=== PATIENT | male | born 1950 | race Caucasian/White ===

== ENCOUNTER 2019-04-04 18:36 | Inpatient (IN) | payer MEDICARE, OTHER ==
[2019-04-04 21:59] VITALS: BP 142/86
[2019-04-04] MEDS ORDERED: Magnesium Hydroxide (MOM) 30 mL UDC PO PRN (22:44)
[2019-04-04] MEDS ORDERED: Maalox 30 mL Cup PO PRN (22:44)
[2019-04-05] MEDS: Multivitamin Tab PO SCH (08:41)
[2019-04-05] MEDS ORDERED: Multivitamin w/ Minerals Tab PO SCH (09:00)
[2019-04-05] MEDS ORDERED: Non-Formulary Item 1 EA (Multivitamin [Multi-Vitamin Daily] 1 TAB) PO SCH (09:00)
[2019-04-05] MEDS ORDERED: Fleet Enema 135 mL RC ONE (10:00)
[2019-04-05] MEDS: Insulin Glargine 100 units/ml 10ml Vial SUBQ SCH ×2 (10:46→21:43)
--- NOTE | 2019-04-05 14:25 | History & Physical ---
ADMIT DATE: 04/04/2019 CHIEF COMPLAINT: Admitted for inpatient psych unit. HISTORY OF PRESENT ILLNESS: This is a 68-year-old male with history of diabetes, renal insufficiency, hypertension, high cholesterol, history of stroke, dementia, admitted from [facility] to inpatient psych. The patient was cleared medically from the ER. The patient is a poor historian. Denies chest pain, shortness of breath. PAST MEDICAL HISTORY: As mentioned in history of present illness. PAST SURGICAL HISTORY: Denies surgeries in the past. ALLERGIES: No known drug allergies. MEDICATIONS: The patient is on amlodipine, aspirin, atorvastatin, Dulcolax, Colace, fleet enema, Lantus insulin sliding scale, ____, Namenda, multivitamin, Seroquel. FAMILY HISTORY: Noncontributory. SOCIAL HISTORY: The patient is a tailor. He used to smoke, drink. No drug use. 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 REVIEW OF SYSTEMS: GENERAL: Complaints not feeling well. HEENT: No blurred vision or pain. LUNGS: No COPD or asthma. HEART: The patient with hypertension, history of stroke. ABDOMEN: No nausea, vomiting or pain. GENITOURINARY: The patient denies increased frequency or dysuria. NEUROLOGIC: No headache, seizure, history of stroke. PSYCHIATRIC: See above. ENDOCRINE: The patient has diabetes. PHYSICAL EXAMINATION: VITAL SIGNS: Blood pressure 126/78, respirations 20, pulse 79, temperature 98.0. GENERAL: Elderly male, disheveled. NECK: Supple. LUNGS: Clear breath sounds, few rhonchi. HEART: Regular rate and rhythm with systolic ejection murmur. ABDOMEN: Soft, globular. EXTREMITIES: Positive excoriation, no deformity. NEUROLOGIC: Limited. LABORATORY DATA: WBC 8, hemoglobin 14, platelets 216. UA 3+ ketones and few bacteria. Glucose 317, BUN 23, creatinine 1.07. Total bilirubin is 1.1. AST and ALT 36 and 31. ASSESSMENT: 1. Diabetes. 2. Renal insufficiency, elevated bilirubin. 3. Hypertension. 4. History of stroke. 5. Dementia. 6. Schizoaffective disorder. 7. Hypercholesterolemia. 8. Gait instability. PLAN: ____ insulin sliding scale. We will start the patient on blood pressure medication. Continue fall precaution. Continue aspirin. We will continue monitoring closely with you, Dr. Huerta. JOB# [id number]
--- NOTE | 2019-04-05 17:49 | Psychiatric Evaluation ---
DATE OF SERVICE: 04/05/2019 HISTORY OF PRESENT ILLNESS: A 68-year-old male transferred from longterm. Apparently was aggressive, agitated, trying to strike out, yelling constantly, refusing medications, refusing pretty much everything. The patient is AO to name, not place, not situation, not year, not month. He gets very mad as I asked him questions, started yelling at me, screaming, having grunting at me. PAST PSYCHIATRIC HISTORY: Unclear likely dementia. FAMILY HISTORY: Unclear, not answering. SOCIAL HISTORY: Does not tell me where he was born and states he was born in 1912. This is incorrect. He was born in 1951. Unclear family support. MEDICATIONS: Reviewed. MEDICAL HISTORY: Noted. MENTAL STATUS EXAMINATION: Stated age, disheveled, unkempt, angry, upset, yelling, screaming, confused. Unclear psychotic symptoms. No overt suicidal ideations, poor impulse control. PROVISIONAL DIAGNOSES: Mood, unspecified; anxiety, unspecified; psychosis, unspecified; rule out dementia, likely dementia. MEDICAL: Please see full H and P. ESTIMATED LENGTH OF STAY: 7-10 days. ASSESSMENT: The patient requiring hospitalization. Angry upset, agitated, striking out. TREATMENT PLAN: Includes group as well as milieu therapy. CONDITIONS FOR DISCHARGE: Improved mood, improved affect. JOB# [id number]
[2019-04-05] MEDS ORDERED: Non-Formulary Item 1 EA (Atorvastatin Calcium [Lipitor] 40 MG) PO SCH (21:00)
[2019-04-05] MEDS ORDERED: INSULIN LISPRO SLIDING SCALE 100 UNITS/ML UNIT SUBQ SCH (21:00)
[2019-04-05] MEDS: INSULIN LISPRO SLIDING SCALE 100 UNITS/ML UNIT SUBQ SCH (21:44)
--- NOTE | 2019-04-06 06:35 | Progress Notes ---
DATE: 04/06/2019 SUBJECTIVE: A 68-year-old male transferred from long-term. The patient is aggressive, agitated, trying to strike, yelling, very irritable, yelling this morning, agitated this morning, not wanting to talk to me. Per social security specialist, the patient is coming from [facility]. The patient remains symptomatic, impulsive, irritable, refusing vitals for example, on and off feeling episodes, unkempt. We will continue to monitor ongoing symptoms. Continue dosing of Seroquel. We will consider the addition of a mood stabilizing medication. JOB# [id number]
[2019-04-06] MEDS: Multivitamin Tab PO SCH (08:09)
[2019-04-06] MEDS: Insulin Glargine 100 units/ml 10ml Vial SUBQ SCH ×2 (08:09→21:43)
--- NOTE | 2019-04-06 14:13 | Internal Medicine Prog Note ---
Internal Medicine Subjective - Subjective Patient seen and examined:: with staff, chart reviewed Patient is:: awake, verbal, interactive, in bed Per staff patient has:: no adverse event, no episodes of fall, poor appetite, tolerating meds Internal Medicine Objective - Physical Exam Vitals and I&O: Vital Signs Temp 96.3 F 04/05/19 15:43 Pulse 67 04/05/19 15:43 Resp 20 04/05/19 20:00 BP 143/94 04/05/19 15:43 Pulse Ox 98 04/05/19 15:43 Intake & Output 04/05/19 04/06/19 04/06/19 18:59 06:59 18:59 Intake Total 240 Balance 240 Intake: Oral 240 Other: # Voids 2 # Bowel Movements 0 Active Medications: Current Medications Acetaminophen (Tylenol) 650 mg PO Q4HR PRN PRN Reason: Mild Pain / Temp above 100 Stop: 06/03/19 20:49 Al Hydrox/Mg Hydrox/Simethicone (Maalox) 30 ml PO Q4HR PRN PRN Reason: GI DISTRESS Stop: 06/03/19 22:43 Amlodipine Besylate (Norvasc) 5 mg PO BID [facility] Stop: 06/04/19 08:59 Last Admin: 04/06/19 08:09 Dose: Not Given Aspirin (Aspirin) 325 mg PO DAILY@1200 [facility] Stop: 06/04/19 11:59 Last Admin: 04/06/19 12:31 Dose: Not Given Atorvastatin Calcium (Lipitor) 40 mg PO HS [facility] Stop: 06/04/19 20:59 Last Admin: 04/05/19 21:43 Dose: Not Given Bisacodyl (Dulcolax 10 Mg Supp) 10 mg RC PRN PRN PRN Reason: if MOM is ineffective Stop: 06/03/19 22:49 Divalproex Sodium (Depakote Dr) 250 mg PO BID [facility]; Protocol Stop: 06/05/19 08:59 Last Admin: 04/06/19 08:09 Dose: Not Given Docusate Sodium (Colace) 100 mg PO DAILY [facility] Stop: 06/04/19 08:59 Last Admin: 04/06/19 08:09 Dose: Not Given Insulin Glargine (Lantus Insulin) 10 units SUBQ Q12HR [facility] Stop: 06/04/19 08:59 Last Admin: 04/06/19 08:09 Dose: Not Given Insulin Human Lispro (Humalog Insulin Sliding Scale) 100 units SUBQ HS [facility]; Protocol Stop: 06/04/19 20:59 Last Admin: 04/05/19 21:44 Dose: Not Given Lisinopril (Zestril) 10 mg PO HS [facility] Stop: 06/04/19 20:59 Last Admin: 04/05/19 21:44 Dose: Not Given Lorazepam (Ativan) 0.5 mg PO Q4HR PRN; Protocol PRN Reason: Anxiety Stop: 05/04/19 22:43 Last Admin: 04/06/19 01:44 Dose: 0.5 mg Magnesium Hydroxide (Milk Of Magnesia) 30 ml PO HS PRN PRN Reason: Constipation Memantine (Namenda) 10 mg PO BID [facility] Stop: 06/04/19 08:59 Last Admin: 04/06/19 08:09 Dose: Not Given Multivitamins/Vitamin C (Theragran) 1 tab PO DAILY [facility] Stop: 06/04/19 08:59 Last Admin: 04/06/19 08:09 Dose: Not Given Quetiapine Fumarate (Seroquel) 400 mg PO BID [facility]; Protocol Stop: 06/04/19 08:59 Last Admin: 04/06/19 08:09 Dose: Not Given Zolpidem Tartrate (Ambien) 5 mg PO HS PRN PRN Reason: Insomnia Stop: 06/03/19 22:43 General: weak HEENT: NC/AT, PERRLA Neck: Supple, No JVD Lungs: CTAB Cardiovascular: RRR, Normal S1, Normal S2, with murmur Abdomen: soft, globular, non-distended, positive bowel sound Extremities: excoriation Neurological: no change Internal Medicine Assmt/Plan - Assessment Assessment: ASSESSMENT: 1. Diabetes. 2. Renal insufficiency, elevated bilirubin. 3. Hypertension. 4. History of stroke. 5. Dementia. 6. Schizoaffective disorder. 7. Hypercholesterolemia. 8. Gait instability. - Plan Plan: PLAN: __cont on __ insulin sliding scale. We will start the patient on blood pressure medication. Continue fall precaution. Continue aspirin. We will continue monitoring closely farida root
[2019-04-06] MEDS: INSULIN LISPRO SLIDING SCALE 100 UNITS/ML UNIT SUBQ SCH (21:45)
--- NOTE | 2019-04-07 06:32 | Progress Notes ---
DATE: 04/07/2019 SUBJECTIVE: A 68-year-old male coming into the hospital, really upset, irritable, refusing to speak with me. Staff noting he is very true and rude, poorly oriented, confused, some agitation, verbally abusive towards staff. Medications were noted. Vitals were reviewed. PLAN: We will continue to monitor. Continue dosing of Seroquel. I did add Depakote to his regimen. JOB# [id number]
[2019-04-07] MEDS: Insulin Glargine 100 units/ml 10ml Vial SUBQ SCH ×2 (08:22→21:13)
[2019-04-07] MEDS: Multivitamin Tab PO SCH (08:22)
--- NOTE | 2019-04-07 12:34 | Internal Medicine Prog Note ---
Internal Medicine Subjective - Subjective Patient seen and examined:: with staff, chart reviewed Patient is:: awake, verbal, interactive, in bed Per staff patient has:: no adverse event, no episodes of fall, poor appetite, tolerating meds Internal Medicine Objective - Physical Exam Vitals and I&O: Vital Signs Temp 96.3 F 04/05/19 15:43 Pulse 0 04/06/19 22:17 Resp 20 04/06/19 20:00 BP 0/0 04/06/19 22:17 Pulse Ox 98 04/05/19 15:43 Intake & Output 04/06/19 04/07/19 04/07/19 18:59 06:59 18:59 Intake Total 1500 120 Balance 1500 120 Intake: Oral 1500 120 Other: # Voids 3 1 # Bowel Movements 0 1 Active Medications: Current Medications Acetaminophen (Tylenol) 650 mg PO Q4HR PRN PRN Reason: Mild Pain / Temp above 100 Stop: 06/03/19 20:49 Al Hydrox/Mg Hydrox/Simethicone (Maalox) 30 ml PO Q4HR PRN PRN Reason: GI DISTRESS Stop: 06/03/19 22:43 Amlodipine Besylate (Norvasc) 5 mg PO BID [facility] Stop: 06/04/19 08:59 Last Admin: 04/07/19 08:21 Dose: Not Given Aspirin (Aspirin) 325 mg PO DAILY@1200 [facility] Stop: 06/04/19 11:59 Last Admin: 04/06/19 12:31 Dose: Not Given Atorvastatin Calcium (Lipitor) 40 mg PO HS [facility] Stop: 06/04/19 20:59 Last Admin: 04/06/19 22:17 Dose: 40 mg Bisacodyl (Dulcolax 10 Mg Supp) 10 mg RC PRN PRN PRN Reason: if MOM is ineffective Stop: 06/03/19 22:49 Divalproex Sodium (Depakote Dr) 250 mg PO BID [facility]; Protocol Stop: 06/05/19 08:59 Last Admin: 04/07/19 08:22 Dose: Not Given Docusate Sodium (Colace) 100 mg PO DAILY [facility] Stop: 06/04/19 08:59 Last Admin: 04/07/19 08:22 Dose: Not Given Insulin Glargine (Lantus Insulin) 10 units SUBQ Q12HR [facility] Stop: 06/04/19 08:59 Last Admin: 04/07/19 08:22 Dose: Not Given Insulin Human Lispro (Humalog Insulin Sliding Scale) 100 units SUBQ HS [facility]; Protocol Stop: 06/04/19 20:59 Last Admin: 04/06/19 21:45 Dose: Not Given Lisinopril (Zestril) 10 mg PO HS [facility] Stop: 06/04/19 20:59 Last Admin: 04/06/19 22:17 Dose: 10 mg Lorazepam (Ativan) 0.5 mg PO Q4HR PRN; Protocol PRN Reason: Anxiety Stop: 05/04/19 22:43 Last Admin: 04/07/19 02:32 Dose: 0.5 mg Magnesium Hydroxide (Milk Of Magnesia) 30 ml PO HS PRN PRN Reason: Constipation Memantine (Namenda) 10 mg PO BID [facility] Stop: 06/04/19 08:59 Last Admin: 04/07/19 08:22 Dose: Not Given Multivitamins/Vitamin C (Theragran) 1 tab PO DAILY [facility] Stop: 06/04/19 08:59 Last Admin: 04/07/19 08:22 Dose: Not Given Quetiapine Fumarate (Seroquel) 400 mg PO BID [facility]; Protocol Stop: 06/04/19 08:59 Last Admin: 04/07/19 08:22 Dose: Not Given Zolpidem Tartrate (Ambien) 5 mg PO HS PRN PRN Reason: Insomnia Stop: 06/03/19 22:43 Last Admin: 04/06/19 22:16 Dose: 5 mg General: weak HEENT: NC/AT, PERRLA Neck: Supple, No JVD Lungs: CTAB Cardiovascular: RRR, Normal S1, Normal S2, with murmur Abdomen: soft, globular, non-distended, positive bowel sound Extremities: excoriation Neurological: no change Internal Medicine Assmt/Plan - Assessment Assessment: ASSESSMENT: 1. Diabetes. 2. Renal insufficiency, elevated bilirubin. 3. Hypertension. 4. History of stroke. 5. Dementia. 6. Schizoaffective disorder. 7. Hypercholesterolemia. 8. Gait instability. - Plan Plan: PLAN: __cont on __ insulin sliding scale. We will start the patient on blood pressure medication. Continue fall precaution. Continue aspirin. We will continue monitoring closely farida root
[2019-04-07] MEDS: INSULIN LISPRO SLIDING SCALE 100 UNITS/ML UNIT SUBQ SCH (21:14)
[2019-04-08] MEDS: Multivitamin Tab PO SCH (08:06)
[2019-04-08] MEDS: Insulin Glargine 100 units/ml 10ml Vial SUBQ SCH ×2 (08:06→20:36)
--- NOTE | 2019-04-08 14:34 | Internal Medicine Prog Note ---
Internal Medicine Subjective - Subjective Patient seen and examined:: with staff, chart reviewed Patient is:: awake, verbal, interactive, in bed Per staff patient has:: no adverse event, no episodes of fall, poor appetite, tolerating meds Internal Medicine Objective - Physical Exam Vitals and I&O: Vital Signs Temp 98.0 F 04/08/19 14:00 Pulse 74 04/08/19 14:00 Resp 20 04/08/19 14:00 BP 130/80 04/08/19 14:00 Pulse Ox 94 04/08/19 14:00 Intake & Output 04/07/19 04/08/19 04/08/19 18:59 06:59 18:59 Intake Total 480 Output Total 2 Balance 478 Intake: Oral 480 Output: Urine/Stool Mix 2 Other: # Voids 1 Active Medications: Current Medications Acetaminophen (Tylenol) 650 mg PO Q4HR PRN PRN Reason: Mild Pain / Temp above 100 Stop: 06/03/19 20:49 Al Hydrox/Mg Hydrox/Simethicone (Maalox) 30 ml PO Q4HR PRN PRN Reason: GI DISTRESS Stop: 06/03/19 22:43 Amlodipine Besylate (Norvasc) 5 mg PO BID [facility] Stop: 06/04/19 08:59 Last Admin: 04/08/19 08:06 Dose: Not Given Aspirin (Aspirin) 325 mg PO DAILY@1200 [facility] Stop: 06/04/19 11:59 Last Admin: 04/08/19 12:44 Dose: Not Given Atorvastatin Calcium (Lipitor) 40 mg PO HS [facility] Stop: 06/04/19 20:59 Last Admin: 04/07/19 20:49 Dose: 40 mg Bisacodyl (Dulcolax 10 Mg Supp) 10 mg RC PRN PRN PRN Reason: if MOM is ineffective Stop: 06/03/19 22:49 Divalproex Sodium (Depakote Dr) 250 mg PO BID [facility]; Protocol Stop: 06/05/19 08:59 Last Admin: 04/08/19 08:06 Dose: Not Given Docusate Sodium (Colace) 100 mg PO DAILY [facility] Stop: 06/04/19 08:59 Last Admin: 04/08/19 08:06 Dose: Not Given Insulin Glargine (Lantus Insulin) 10 units SUBQ Q12HR [facility] Stop: 06/04/19 08:59 Last Admin: 04/08/19 08:06 Dose: Not Given Insulin Human Lispro (Humalog Insulin Sliding Scale) 100 units SUBQ HS [facility]; Protocol Stop: 06/04/19 20:59 Last Admin: 04/07/19 21:14 Dose: Not Given Lisinopril (Zestril) 10 mg PO HS [facility] Stop: 06/04/19 20:59 Last Admin: 04/07/19 20:49 Dose: 10 mg Lorazepam (Ativan) 0.5 mg PO Q4HR PRN; Protocol PRN Reason: Anxiety Stop: 05/04/19 22:43 Last Admin: 04/07/19 02:32 Dose: 0.5 mg Magnesium Hydroxide (Milk Of Magnesia) 30 ml PO HS PRN PRN Reason: Constipation Memantine (Namenda) 10 mg PO BID [facility] Stop: 06/04/19 08:59 Last Admin: 04/08/19 08:06 Dose: Not Given Multivitamins/Vitamin C (Theragran) 1 tab PO DAILY [facility] Stop: 06/04/19 08:59 Last Admin: 04/08/19 08:06 Dose: Not Given Quetiapine Fumarate (Seroquel) 400 mg PO BID [facility]; Protocol Stop: 06/04/19 08:59 Last Admin: 04/08/19 08:06 Dose: Not Given Zolpidem Tartrate (Ambien) 5 mg PO HS PRN PRN Reason: Insomnia Stop: 06/03/19 22:43 Last Admin: 04/07/19 20:49 Dose: 5 mg General: weak HEENT: NC/AT, PERRLA Neck: Supple, No JVD Lungs: CTAB Cardiovascular: RRR, Normal S1, Normal S2, with murmur Abdomen: soft, globular, non-distended, positive bowel sound Extremities: excoriation Neurological: no change Internal Medicine Assmt/Plan - Assessment Assessment: ASSESSMENT: 1. Diabetes. 2. Renal insufficiency, elevated bilirubin. 3. Hypertension. 4. History of stroke. 5. Dementia. 6. Schizoaffective disorder. 7. Hypercholesterolemia. 8. Gait instability. - Plan Plan: PLAN: __cont on __ insulin sliding scale. We will start the patient on blood pressure medication. Continue fall precaution. Continue aspirin. We will continue monitoring closely dw rn Nutritional Asmnt/Malnutr-PDOC - Dietary Evaluation Malnutrition Findings (Please click <Entered> for more info): Nutritional Asmnt/Malnutrition Start: 04/08/19 09: 31 Text: Status: Complete Freq: Protocol: Document 04/08/19 09:31 MU (Rec: 04/08/19 09:49 GONZALOTEQUILA [email or web address]- [id number]) Nutritional Asmnt/Malnutrition Patient General Information Nutritional Screening Moderate Risk Diagnosis Psychosis Pertinent Medical Hx/Surgical Hx Diabetes, Renal insufficiency, hypertension, high cholesterol, history of stroke , dementia. Subjective Information Admitted from [facility]. Per nursing notes, BG was 344 but patient refused to take his insulin. Patient tolerating current diet without noted difficulty. Current Diet Order/ Nutrition Support 60 gm CCHO, Chopped Patient / S.O Not Indicated Pertinent Medications Maalox, Lipitor, Dulcolax, COlace, Lantus, humalog, MOM, theragran Pertinent Labs POC glucose 344 per nursing note Nutritional Hx/Data Height 1.73 m Height (Calculated Centimeters) 172.7 Current Weight (lbs) 74.843 kg Weight (Calculated Kilograms) 74.8 Weight (Calculated Grams) 85971.7 Ashby Body Weight 154 % Ashby Body Weight 107 Body Mass Index (BMI) 25.0 Recent Weight Change No Weight Status Overweight GI Symptoms GI Symptoms None Last BM 04/07 x 1 Difficult in: None Food Allergies No Cultural/Ethnic/Shinto Belief none indicated Usual diet at home unknown Skin Integrity/Comment: Rodolfo 13, Intact Current %PO Good (75-100%) Estimated Nutritional Goals BEE in Kcals: Using Current wt Calories/Kcals/Kg 75kg CBW Kcals Calculated ~6729-6383 kcal/day Protein: Using Current wt Protein g/k.8-1 gm/kg Protein Calculated ~60-75 gm/day Fluid: ml ~8498-2284 ml/day (1 ml/kcal) Nutritional Problem 1. Problem Problem Altered nutrition related lab values related to Etiology uncontrolled hyperglycemia aeb Signs/Symptoms: Glucose 344 Intervention/Recommendation Comments 1. Continue 60 gm CCHO, Chopped diet as tolerated by patient. 2. MD to adjust insulin regimen as needed for optimal glycemic control. Nursing to continue to encourage patient to take insulin as prescribed. Expected Outcomes/Goals Expected Outcomes/Goals Oral intake >75% of meals, weight stable, nutrition related labs WNL F/U MR 04/11-
--- NOTE | 2019-04-08 14:57 | Progress Notes ---
DATE: 04/08/[address] Fernando. Case was discussed with staff of the patient, reviewed records. The patient was admitted on 04/05/2019 because of aggressive behavior. He was striking out, yelling constantly, refusing medication, refusing pretty much everything and oriented to name only, not place or situation. He is demented, confused, unable to make safe plan for self-care. Continues to have poor insight, easily agitated. No side effects with the medication, no sedation, no nausea. Tend to be very upset. In general, he has been on Depakote 250 mg twice a day and Namenda 10 mg twice a day, Seroquel 400 mg twice a day. No side effects, no sedation, no nausea, no extrapyramidal symptoms. We will continue outpatient group therapy, milieu therapy, and adjust medications as needed. JOB# [id number]
[2019-04-08] MEDS: INSULIN LISPRO SLIDING SCALE 100 UNITS/ML UNIT SUBQ SCH (20:38)
[2019-04-09] MEDS: Multivitamin Tab PO SCH (08:38)
[2019-04-09] MEDS: Insulin Glargine 100 units/ml 10ml Vial SUBQ SCH ×2 (08:51→21:52)
--- NOTE | 2019-04-09 14:06 | Internal Medicine Prog Note ---
Internal Medicine Subjective - Subjective Patient seen and examined:: with staff, chart reviewed Patient is:: awake, verbal, interactive, in bed Per staff patient has:: no adverse event, no episodes of fall, poor appetite, tolerating meds Internal Medicine Objective - Physical Exam Vitals and I&O: Vital Signs Temp 97.3 F 04/09/19 14:04 Pulse 70 04/09/19 14:04 Resp 16 04/09/19 14:04 BP 131/78 04/09/19 14:04 Pulse Ox 99 04/09/19 14:04 Intake & Output 04/08/19 04/09/19 04/09/19 18:59 06:59 18:59 Intake Total 1300 240 Balance 1300 240 Intake: Oral 1300 240 Other: # Voids 4 2 # Bowel Movements 0 Active Medications: Current Medications Acetaminophen (Tylenol) 650 mg PO Q4HR PRN PRN Reason: Mild Pain / Temp above 100 Stop: 06/03/19 20:49 Al Hydrox/Mg Hydrox/Simethicone (Maalox) 30 ml PO Q4HR PRN PRN Reason: GI DISTRESS Stop: 06/03/19 22:43 Amlodipine Besylate (Norvasc) 5 mg PO BID [facility] Stop: 06/04/19 08:59 Last Admin: 04/09/19 09:36 Dose: Not Given Aspirin (Aspirin) 325 mg PO DAILY@1200 [facility] Stop: 06/04/19 11:59 Last Admin: 04/08/19 12:44 Dose: Not Given Atorvastatin Calcium (Lipitor) 40 mg PO HS [facility] Stop: 06/04/19 20:59 Last Admin: 04/08/19 20:36 Dose: 40 mg Bisacodyl (Dulcolax 10 Mg Supp) 10 mg RC PRN PRN PRN Reason: if MOM is ineffective Stop: 06/03/19 22:49 Divalproex Sodium (Depakote Dr) 250 mg PO BID [facility]; Protocol Stop: 06/05/19 08:59 Last Admin: 04/09/19 08:38 Dose: 250 mg Docusate Sodium (Colace) 100 mg PO DAILY [facility] Stop: 06/04/19 08:59 Last Admin: 04/09/19 08:38 Dose: 100 mg Insulin Glargine (Lantus Insulin) 10 units SUBQ Q12HR [facility] Stop: 06/04/19 08:59 Last Admin: 04/09/19 08:51 Dose: 10 units Insulin Human Lispro (Humalog Insulin Sliding Scale) 100 units SUBQ HS [facility]; Protocol Stop: 06/04/19 20:59 Last Admin: 04/08/19 20:38 Dose: 4 units Lisinopril (Zestril) 10 mg PO HS [facility] Stop: 06/04/19 20:59 Last Admin: 04/08/19 20:41 Dose: 10 mg Lorazepam (Ativan) 0.5 mg PO Q4HR PRN; Protocol PRN Reason: Anxiety Stop: 05/04/19 22:43 Last Admin: 04/07/19 02:32 Dose: 0.5 mg Magnesium Hydroxide (Milk Of Magnesia) 30 ml PO HS PRN PRN Reason: Constipation Memantine (Namenda) 10 mg PO BID [facility] Stop: 06/04/19 08:59 Last Admin: 04/09/19 08:38 Dose: 10 mg Multivitamins/Vitamin C (Theragran) 1 tab PO DAILY [facility] Stop: 06/04/19 08:59 Last Admin: 04/09/19 08:38 Dose: 1 tab Quetiapine Fumarate (Seroquel) 400 mg PO BID [facility]; Protocol Stop: 06/04/19 08:59 Last Admin: 04/09/19 08:38 Dose: 400 mg Zolpidem Tartrate (Ambien) 5 mg PO HS PRN PRN Reason: Insomnia Stop: 06/03/19 22:43 Last Admin: 04/08/19 20:43 Dose: 5 mg General: weak HEENT: NC/AT, PERRLA Neck: Supple, No JVD Lungs: CTAB Cardiovascular: RRR, Normal S1, Normal S2, with murmur Abdomen: soft, globular, non-distended, positive bowel sound Extremities: excoriation Neurological: no change Internal Medicine Assmt/Plan - Assessment Assessment: ASSESSMENT: 1. Diabetes. 2. Renal insufficiency, elevated bilirubin. 3. Hypertension. 4. History of stroke. 5. Dementia. 6. Schizoaffective disorder. 7. Hypercholesterolemia. 8. Gait instability. - Plan Plan: PLAN: __cont on __ insulin sliding scale. We will start the patient on blood pressure medication. Continue fall precaution. Continue aspirin. We will continue monitoring closely dw ivett Nutritional Asmnt/Malnutr-PDOC - Dietary Evaluation Malnutrition Findings (Please click <Entered> for more info): Nutritional Asmnt/Malnutrition Start: 04/08/19 09: 31 Text: Status: Complete Freq: Protocol: Document 04/08/19 09:31 MU (Rec: 04/08/19 09:49 GONZALOTEQUILA BENZ- [id number]) Nutritional Asmnt/Malnutrition Patient General Information Nutritional Screening Moderate Risk Diagnosis Psychosis Pertinent Medical Hx/Surgical Hx Diabetes, Renal insufficiency, hypertension, high cholesterol, history of stroke , dementia. Subjective Information Admitted from [facility]. Per nursing notes, BG was 344 but patient refused to take his insulin. Patient tolerating current diet without noted difficulty. Current Diet Order/ Nutrition Support 60 gm CCHO, Chopped Patient / S.O Not Indicated Pertinent Medications Maalox, Lipitor, Dulcolax, COlace, Lantus, humalog, MOM, theragran Pertinent Labs POC glucose 344 per nursing note Nutritional Hx/Data Height 1.73 m Height (Calculated Centimeters) 172.7 Current Weight (lbs) 74.843 kg Weight (Calculated Kilograms) 74.8 Weight (Calculated Grams) 67812.7 [place] Body Weight 154 % [place] Body Weight 107 Body Mass Index (BMI) 25.0 Recent Weight Change No Weight Status Overweight GI Symptoms GI Symptoms None Last BM 04/07 x 1 Difficult in: None Food Allergies No Cultural/Ethnic/Protestant Belief none indicated Usual diet at home unknown Skin Integrity/Comment: Rodolfo 13, Intact Current %PO Good (75-100%) Estimated Nutritional Goals BEE in Kcals: Using Current wt Calories/Kcals/Kg 75kg CBW Kcals Calculated ~7648-2272 kcal/day Protein: Using Current wt Protein g/k.8-1 gm/kg Protein Calculated ~60-75 gm/day Fluid: ml ~9857-7140 ml/day (1 ml/kcal) Nutritional Problem 1. Problem Problem Altered nutrition related lab values related to Etiology uncontrolled hyperglycemia aeb Signs/Symptoms: Glucose 344 Intervention/Recommendation Comments 1. Continue 60 gm CCHO, Chopped diet as tolerated by patient. 2. MD to adjust insulin regimen as needed for optimal glycemic control. Nursing to continue to encourage patient to take insulin as prescribed. Expected Outcomes/Goals Expected Outcomes/Goals Oral intake >75% of meals, weight stable, nutrition related labs WNL F/U 04/11-
--- NOTE | 2019-04-09 15:39 | Progress Notes ---
DATE: 04/09/2019 Case was discussed with staff of the patient, reviewed the records. The patient continues to be unpredictable, impulsive with episodes of yelling and refusing at times medication, hard to redirect, disoriented, confused, and continues to have poor insight. No side effects of the medication, no sedation, no nausea, no extrapyramidal symptoms. However, he is not taking medications, sometimes, it is hard to adjust medication that he is not taking and we will continue to work with the patient in group therapy, milieu therapy, and adjust medications as needed. JOB# [id number]
[2019-04-09] MEDS: INSULIN LISPRO SLIDING SCALE 100 UNITS/ML UNIT SUBQ SCH (21:52)
[2019-04-10] MEDS: Multivitamin Tab PO SCH (08:16)
[2019-04-10] MEDS: Insulin Glargine 100 units/ml 10ml Vial SUBQ SCH ×2 (10:16→21:00)
--- NOTE | 2019-04-10 12:53 | Internal Medicine Prog Note ---
Internal Medicine Subjective - Subjective Patient seen and examined:: with staff, chart reviewed Patient is:: awake, verbal, interactive, in bed Per staff patient has:: no adverse event, no episodes of fall, poor appetite, tolerating meds Internal Medicine Objective - Physical Exam Vitals and I&O: Vital Signs Temp 97.2 F 04/10/19 05:20 Pulse 79 04/10/19 08:16 Resp 20 04/10/19 05:20 BP 119/79 04/10/19 08:16 Pulse Ox 92 04/10/19 05:20 Intake & Output 04/09/19 04/10/19 04/10/19 18:59 06:59 18:59 Intake Total 120 Balance 120 Intake: Oral 120 Other: # Voids 3 3 # Bowel Movements 0 0 Active Medications: Current Medications Acetaminophen (Tylenol) 650 mg PO Q4HR PRN PRN Reason: Mild Pain / Temp above 100 Stop: 06/03/19 20:49 Al Hydrox/Mg Hydrox/Simethicone (Maalox) 30 ml PO Q4HR PRN PRN Reason: GI DISTRESS Stop: 06/03/19 22:43 Amlodipine Besylate (Norvasc) 5 mg PO BID [facility] Stop: 06/04/19 08:59 Last Admin: 04/10/19 08:16 Dose: 5 mg Aspirin (Aspirin) 325 mg PO DAILY@1200 [facility] Stop: 06/04/19 11:59 Last Admin: 04/09/19 13:00 Dose: 325 mg Atorvastatin Calcium (Lipitor) 40 mg PO HS [facility] Stop: 06/04/19 20:59 Last Admin: 04/09/19 21:32 Dose: 40 mg Bisacodyl (Dulcolax 10 Mg Supp) 10 mg RC PRN PRN PRN Reason: if MOM is ineffective Stop: 06/03/19 22:49 Divalproex Sodium (Depakote Dr) 250 mg PO BID [facility]; Protocol Stop: 06/05/19 08:59 Last Admin: 04/10/19 08:16 Dose: 250 mg Docusate Sodium (Colace) 100 mg PO DAILY [facility] Stop: 06/04/19 08:59 Last Admin: 04/10/19 08:16 Dose: 100 mg Insulin Glargine (Lantus Insulin) 10 units SUBQ Q12HR [facility] Stop: 06/04/19 08:59 Last Admin: 04/10/19 10:16 Dose: 10 units Insulin Human Lispro (Humalog Insulin Sliding Scale) 100 units SUBQ HS [facility]; Protocol Stop: 06/04/19 20:59 Lisinopril (Zestril) 10 mg PO HS [facility] Stop: 06/04/19 20:59 Last Admin: 04/09/19 21:33 Dose: 10 mg Lorazepam (Ativan) 0.5 mg PO Q4HR PRN; Protocol PRN Reason: Anxiety Stop: 05/04/19 22:43 Last Admin: 04/07/19 02:32 Dose: 0.5 mg Magnesium Hydroxide (Milk Of Magnesia) 30 ml PO HS PRN PRN Reason: Constipation Memantine (Namenda) 10 mg PO BID [facility] Stop: 06/04/19 08:59 Last Admin: 04/10/19 08:16 Dose: 10 mg Multivitamins/Vitamin C (Theragran) 1 tab PO DAILY [facility] Stop: 06/04/19 08:59 Last Admin: 04/10/19 08:16 Dose: 1 tab Quetiapine Fumarate (Seroquel) 400 mg PO BID [facility]; Protocol Stop: 06/04/19 08:59 Last Admin: 04/10/19 08:16 Dose: 400 mg Zolpidem Tartrate (Ambien) 5 mg PO HS PRN PRN Reason: Insomnia Stop: 06/03/19 22:43 Last Admin: 04/08/19 20:43 Dose: 5 mg General: weak HEENT: NC/AT, PERRLA Neck: Supple, No JVD Lungs: CTAB Cardiovascular: RRR, Normal S1, Normal S2, with murmur Abdomen: soft, globular, non-distended, positive bowel sound Extremities: excoriation Neurological: no change Internal Medicine Assmt/Plan - Assessment Assessment: ASSESSMENT: 1. Diabetes. 2. Renal insufficiency, elevated bilirubin. 3. Hypertension. 4. History of stroke. 5. Dementia. 6. Schizoaffective disorder. 7. Hypercholesterolemia. 8. Gait instability. - Plan Plan: PLAN: __cont on __ insulin sliding scale. We will start the patient on blood pressure medication. Continue fall precaution. Continue aspirin. We will continue monitoring closely [place] Nutritional Asmnt/Malnutr-PDOC - Dietary Evaluation Malnutrition Findings (Please click <Entered> for more info): Nutritional Asmnt/Malnutrition Start: 04/08/19 09: 31 Text: Status: Complete Freq: Protocol: Document 04/08/19 09:31 GONZALOTEQUILA (Rec: 04/08/19 09:49 GONZALOTEQUILA BENZ- [id number]) Nutritional Asmnt/Malnutrition Patient General Information Nutritional Screening Moderate Risk Diagnosis Psychosis Pertinent Medical Hx/Surgical Hx Diabetes, Renal insufficiency, hypertension, high cholesterol, history of stroke , dementia. Subjective Information Admitted from [facility]. Per nursing notes, BG was 344 but patient refused to take his insulin. Patient tolerating current diet without noted difficulty. Current Diet Order/ Nutrition Support 60 gm CCHO, Chopped Patient / S.O Not Indicated Pertinent Medications Maalox, Lipitor, Dulcolax, COlace, Lantus, humalog, MOM, theragran Pertinent Labs POC glucose 344 per nursing note Nutritional Hx/Data Height 1.73 m Height (Calculated Centimeters) 172.7 Current Weight (lbs) 74.843 kg Weight (Calculated Kilograms) 74.8 Weight (Calculated Grams) 40990.7 [place] Body Weight 154 % [place] Body Weight 107 Body Mass Index (BMI) 25.0 Recent Weight Change No Weight Status Overweight GI Symptoms GI Symptoms None Last BM 04/07 x 1 Difficult in: None Food Allergies No Cultural/Ethnic/Yazidi Belief none indicated Usual diet at home unknown Skin Integrity/Comment: Rodolfo 13, Intact Current %PO Good (75-100%) Estimated Nutritional Goals BEE in Kcals: Using Current wt Calories/Kcals/Kg 75kg CBW Kcals Calculated ~1334-8268 kcal/day Protein: Using Current wt Protein g/k.8-1 gm/kg Protein Calculated ~60-75 gm/day Fluid: ml ~5237-5076 ml/day (1 ml/kcal) Nutritional Problem 1. Problem Problem Altered nutrition related lab values related to Etiology uncontrolled hyperglycemia aeb Signs/Symptoms: Glucose 344 Intervention/Recommendation Comments 1. Continue 60 gm CCHO, Chopped diet as tolerated by patient. 2. MD to adjust insulin regimen as needed for optimal glycemic control. Nursing to continue to encourage patient to take insulin as prescribed. Expected Outcomes/Goals Expected Outcomes/Goals Oral intake >75% of meals, weight stable, nutrition related labs WNL F/U MR /3-5
[2019-04-10] MEDS: INSULIN LISPRO SLIDING SCALE 100 UNITS/ML UNIT SUBQ SCH (21:02)
--- NOTE | 2019-04-11 01:33 | Progress Notes ---
DATE: 04/10/2019 SUBJECTIVE: The patient in the hospital remains somewhat unpredictable, angry, upset, not really talk to me, mostly disengaged, yelling at times, ongoing behavioral disturbances, mostly resistant to care, requiring a higher level of prompting, redirection. ASSESSMENT: The patient is not yelling or combative, but disorganized, mumbling to self. MEDICATIONS: Reviewed. Ongoing concerns that he may act out, strike out at others. JOB# [id number]
[2019-04-11] MEDS: Multivitamin Tab PO SCH (10:23)
[2019-04-11] MEDS: Insulin Glargine 100 units/ml 10ml Vial SUBQ SCH ×2 (11:13→21:38)
--- NOTE | 2019-04-11 12:38 | Internal Medicine Prog Note ---
Internal Medicine Subjective - Subjective Patient seen and examined:: with staff, chart reviewed Patient is:: awake, verbal, interactive, in bed Per staff patient has:: no adverse event, no episodes of fall, poor appetite, tolerating meds Internal Medicine Objective - Physical Exam Vitals and I&O: Vital Signs Temp 98.2 F 04/11/19 05:32 Pulse 85 04/11/19 10:24 Resp 20 04/11/19 08:00 BP 108/76 04/11/19 10:24 Pulse Ox 95 04/11/19 05:32 Intake & Output 04/10/19 04/11/19 04/11/19 18:59 06:59 18:59 Intake Total 900 480 Output Total 2 Balance 900 478 Intake: Oral 900 480 Output: Urine/Stool Mix 2 Other: # Voids 3 1 # Bowel Movements 1 Active Medications: Current Medications Acetaminophen (Tylenol) 650 mg PO Q4HR PRN PRN Reason: Mild Pain (Scale 1-3) Stop: 06/03/19 20:49 Acetaminophen (Tylenol) 650 mg PO Q4H PRN PRN Reason: TEMP ABOVE 100 Stop: 06/10/19 12:02 Al Hydrox/Mg Hydrox/Simethicone (Maalox) 30 ml PO Q4HR PRN PRN Reason: GI DISTRESS Stop: 06/03/19 22:43 Amlodipine Besylate (Norvasc) 5 mg PO BID [facility] Stop: 06/04/19 08:59 Last Admin: 04/11/19 10:24 Dose: Not Given Aspirin (Aspirin) 325 mg PO DAILY@1200 [facility] Stop: 06/04/19 11:59 Last Admin: 04/10/19 13:00 Dose: 325 mg Atorvastatin Calcium (Lipitor) 40 mg PO HS [facility] Stop: 06/04/19 20:59 Last Admin: 04/10/19 21:08 Dose: Not Given Bisacodyl (Dulcolax 10 Mg Supp) 10 mg RC PRN PRN PRN Reason: if MOM is ineffective Stop: 06/03/19 22:49 Divalproex Sodium (Depakote Dr) 250 mg PO BID [facility]; Protocol Stop: 06/05/19 08:59 Last Admin: 04/11/19 10:23 Dose: 250 mg Docusate Sodium (Colace) 100 mg PO DAILY [facility] Stop: 06/04/19 08:59 Last Admin: 04/11/19 10:25 Dose: 100 mg Insulin Glargine (Lantus Insulin) 10 units SUBQ Q12HR [facility] Stop: 06/04/19 08:59 Last Admin: 04/11/19 11:13 Dose: 10 units Insulin Human Lispro (Humalog Insulin Sliding Scale) 100 units SUBQ HS [facility]; Protocol Stop: 06/04/19 20:59 Last Admin: 04/10/19 21:02 Dose: 4 units Lisinopril (Zestril) 10 mg PO HS [facility] Stop: 06/04/19 20:59 Last Admin: 04/10/19 21:09 Dose: Not Given Lorazepam (Ativan) 0.5 mg PO Q4HR PRN; Protocol PRN Reason: Anxiety Stop: 05/04/19 22:43 Last Admin: 04/07/19 02:32 Dose: 0.5 mg Magnesium Hydroxide (Milk Of Magnesia) 30 ml PO HS PRN PRN Reason: Constipation Memantine (Namenda) 10 mg PO BID [facility] Stop: 06/04/19 08:59 Last Admin: 04/11/19 10:23 Dose: 10 mg Multivitamins/Vitamin C (Theragran) 1 tab PO DAILY [facility] Stop: 06/04/19 08:59 Last Admin: 04/11/19 10:23 Dose: 1 tab Quetiapine Fumarate (Seroquel) 400 mg PO BID [facility]; Protocol Stop: 06/04/19 08:59 Last Admin: 04/11/19 10:23 Dose: 400 mg Zolpidem Tartrate (Ambien) 5 mg PO HS PRN PRN Reason: Insomnia Stop: 06/03/19 22:43 Last Admin: 04/08/19 20:43 Dose: 5 mg General: weak HEENT: NC/AT, PERRLA Neck: Supple, No JVD Lungs: CTAB Cardiovascular: RRR, Normal S1, Normal S2, with murmur Abdomen: soft, globular, non-distended, positive bowel sound Extremities: excoriation Neurological: no change Internal Medicine Assmt/Plan - Assessment Assessment: ASSESSMENT: 1. Diabetes. 2. Renal insufficiency, elevated bilirubin. 3. Hypertension. 4. History of stroke. 5. Dementia. 6. Schizoaffective disorder. 7. Hypercholesterolemia. 8. Gait instability. - Plan Plan: PLAN: __cont on __ insulin sliding scale. We will start the patient on blood pressure medication. Continue fall precaution. Continue aspirin. We will continue monitoring closely dw rn will change diet consistency Nutritional Asmnt/Malnutr-PDOC - Dietary Evaluation Malnutrition Findings (Please click <Entered> for more info): Nutritional Asmnt/Malnutrition Start: 04/08/19 09: 31 Text: Status: Complete Freq: Protocol: Document 04/08/19 09:31 MU (Rec: 04/08/19 09:49 MMEDUAR BENZ- [email or web address]) Nutritional Asmnt/Malnutrition Patient General Information Nutritional Screening Moderate Risk Diagnosis Psychosis Pertinent Medical Hx/Surgical Hx Diabetes, Renal insufficiency, hypertension, high cholesterol, history of stroke , dementia. Subjective Information Admitted from [facility]. Per nursing notes, BG was 344 but patient refused to take his insulin. Patient tolerating current diet without noted difficulty. Current Diet Order/ Nutrition Support 60 gm CCHO, Chopped Patient / S.O Not Indicated Pertinent Medications Maalox, Lipitor, Dulcolax, COlace, Lantus, humalog, MOM, theragran Pertinent Labs POC glucose 344 per nursing note Nutritional Hx/Data Height 1.73 m Height (Calculated Centimeters) 172.7 Current Weight (lbs) 74.843 kg Weight (Calculated Kilograms) 74.8 Weight (Calculated Grams) 29589.7 [place] Body Weight 154 % [place] Body Weight 107 Body Mass Index (BMI) 25.0 Recent Weight Change No Weight Status Overweight GI Symptoms GI Symptoms None Last BM 04/07 x 1 Difficult in: None Food Allergies No Cultural/Ethnic/Mormon Belief none indicated Usual diet at home unknown Skin Integrity/Comment: Rodolfo 13, Intact Current %PO Good (75-100%) Estimated Nutritional Goals BEE in Kcals: Using Current wt Calories/Kcals/Kg 75kg CBW Kcals Calculated ~0994-5123 kcal/day Protein: Using Current wt Protein g/k.8-1 gm/kg Protein Calculated ~60-75 gm/day Fluid: ml ~5310-4390 ml/day (1 ml/kcal) Nutritional Problem 1. Problem Problem Altered nutrition related lab values related to Etiology uncontrolled hyperglycemia aeb Signs/Symptoms: Glucose 344 Intervention/Recommendation Comments 1. Continue 60 gm CCHO, Chopped diet as tolerated by patient. 2. MD to adjust insulin regimen as needed for optimal glycemic control. Nursing to continue to encourage patient to take insulin as prescribed. Expected Outcomes/Goals Expected Outcomes/Goals Oral intake >75% of meals, weight stable, nutrition related labs WNL F/U MR /-5
[2019-04-11] MEDS: INSULIN LISPRO SLIDING SCALE 100 UNITS/ML UNIT SUBQ SCH (21:39)
--- NOTE | 2019-04-11 22:43 | Progress Notes ---
DATE: 04/11/2019 SUBJECTIVE: A 68-year-old male who remains confused, disoriented, disgruntled, upset; yelling, cursing, not answering any questions; very angry; labile mood, mostly withdrawn, disheveled, keeps to himself. MEDICATIONS: Noted. ASSESSMENT: Not really following redirection. PLAN: We will continue to monitor, adjust and titrate medications. Ongoing behavioral disturbances, angry; concerns for poor impulse control, striking out behaviors. [facility]# [id number]
[2019-04-12] MEDS: Insulin Glargine 100 units/ml 10ml Vial SUBQ SCH (09:00)
[2019-04-12] MEDS: Multivitamin Tab PO SCH (10:00)
--- NOTE | 2019-04-12 13:00 | Internal Medicine Prog Note ---
Internal Medicine Subjective - Subjective Patient seen and examined:: with staff, chart reviewed Patient is:: awake, verbal, interactive, in bed Per staff patient has:: no adverse event, no episodes of fall, poor appetite, tolerating meds Internal Medicine Objective - Physical Exam Vitals and I&O: Vital Signs Temp 98.7 F 04/12/19 06:45 Pulse 89 04/12/19 10:43 Resp 20 04/12/19 06:45 BP 138/74 04/12/19 10:43 Pulse Ox 92 04/12/19 06:45 Intake & Output 04/11/19 04/12/19 04/12/19 18:59 06:59 18:59 Intake Total 240 Balance 240 Intake: Oral 240 Other: # Voids 2 # Bowel Movements 1 Active Medications: Current Medications Acetaminophen (Tylenol) 650 mg PO Q4HR PRN PRN Reason: Mild Pain (Scale 1-3) Stop: 06/03/19 20:49 Acetaminophen (Tylenol) 650 mg PO Q4H PRN PRN Reason: TEMP ABOVE 100 Stop: 06/10/19 12:02 Al Hydrox/Mg Hydrox/Simethicone (Maalox) 30 ml PO Q4HR PRN PRN Reason: GI DISTRESS Stop: 06/03/19 22:43 Amlodipine Besylate (Norvasc) 5 mg PO BID [facility] Stop: 06/04/19 08:59 Last Admin: 04/12/19 10:43 Dose: 5 mg Aspirin (Aspirin) 325 mg PO DAILY@1200 [facility] Stop: 06/04/19 11:59 Last Admin: 04/11/19 12:50 Dose: 325 mg Atorvastatin Calcium (Lipitor) 40 mg PO HS [facility] Stop: 06/04/19 20:59 Last Admin: 04/11/19 21:38 Dose: 40 mg Bisacodyl (Dulcolax 10 Mg Supp) 10 mg RC PRN PRN PRN Reason: if MOM is ineffective Stop: 06/03/19 22:49 Divalproex Sodium (Depakote Dr) 250 mg PO BID [facility]; Protocol Stop: 06/05/19 08:59 Last Admin: 04/12/19 09:00 Dose: 250 mg Docusate Sodium (Colace) 100 mg PO DAILY [facility] Stop: 06/04/19 08:59 Last Admin: 04/12/19 10:00 Dose: 100 mg Insulin Glargine (Lantus Insulin) 10 units SUBQ Q12HR [facility] Stop: 06/04/19 08:59 Last Admin: 04/12/19 09:00 Dose: Not Given Insulin Human Lispro (Humalog Insulin Sliding Scale) 100 units SUBQ HS [facility]; Protocol Stop: 06/04/19 20:59 Last Admin: 04/11/19 21:39 Dose: Not Given Lisinopril (Zestril) 10 mg PO HS [facility] Stop: 06/04/19 20:59 Last Admin: 04/11/19 21:39 Dose: 10 mg Lorazepam (Ativan) 0.5 mg PO Q4HR PRN; Protocol PRN Reason: Anxiety Stop: 05/04/19 22:43 Last Admin: 04/12/19 10:00 Dose: 0.5 mg Magnesium Hydroxide (Milk Of Magnesia) 30 ml PO HS PRN PRN Reason: Constipation Memantine (Namenda) 10 mg PO BID [facility] Stop: 06/04/19 08:59 Last Admin: 04/12/19 10:00 Dose: 10 mg Multivitamins/Vitamin C (Theragran) 1 tab PO DAILY [facility] Stop: 06/04/19 08:59 Last Admin: 04/12/19 10:00 Dose: 1 tab Quetiapine Fumarate (Seroquel) 300 mg PO BID [facility]; Protocol Stop: 06/11/19 16:59 Zolpidem Tartrate (Ambien) 5 mg PO HS PRN PRN Reason: Insomnia Stop: 06/03/19 22:43 Last Admin: 04/11/19 21:41 Dose: 5 mg General: weak HEENT: NC/AT, PERRLA Neck: Supple, No JVD Lungs: CTAB Cardiovascular: RRR, Normal S1, Normal S2, with murmur Abdomen: soft, globular, non-distended, positive bowel sound Extremities: excoriation Neurological: no change Internal Medicine Assmt/Plan - Assessment Assessment: ASSESSMENT: 1. Diabetes. 2. Renal insufficiency, elevated bilirubin. 3. Hypertension. 4. History of stroke. 5. Dementia. 6. Schizoaffective disorder. 7. Hypercholesterolemia. 8. Gait instability. - Plan Plan: PLAN: __cont on __ insulin sliding scale. We will start the patient on blood pressure medication. Continue fall precaution. Continue aspirin. We will continue monitoring closely dw rn will change diet consistency Nutritional Asmnt/Malnutr-PDOC - Dietary Evaluation Malnutrition Findings (Please click <Entered> for more info): Nutritional Asmnt/Malnutrition Start: 04/08/19 09: 31 Text: Status: Complete Freq: Protocol: Document 04/08/19 09:31 KANDACEHALLETEQUILA (Rec: 04/08/19 09:49 GONZALOTEQUILA ALEGRIAN- [email or web address]) Nutritional Asmnt/Malnutrition Patient General Information Nutritional Screening Moderate Risk Diagnosis Psychosis Pertinent Medical Hx/Surgical Hx Diabetes, Renal insufficiency, hypertension, high cholesterol, history of stroke , dementia. Subjective Information Admitted from [facility]. Per nursing notes, BG was 344 but patient refused to take his insulin. Patient tolerating current diet without noted difficulty. Current Diet Order/ Nutrition Support 60 gm CCHO, Chopped Patient / S.O Not Indicated Pertinent Medications Maalox, Lipitor, Dulcolax, COlace, Lantus, humalog, MOM, theragran Pertinent Labs POC glucose 344 per nursing note Nutritional Hx/Data Height 1.73 m Height (Calculated Centimeters) 172.7 Current Weight (lbs) 74.843 kg Weight (Calculated Kilograms) 74.8 Weight (Calculated Grams) 73530.7 [place] Body Weight 154 % [place] Body Weight 107 Body Mass Index (BMI) 25.0 Recent Weight Change No Weight Status Overweight GI Symptoms GI Symptoms None Last BM 04/07 x 1 Difficult in: None Food Allergies No Cultural/Ethnic/Temple Belief none indicated Usual diet at home unknown Skin Integrity/Comment: Rodolfo 13, Intact Current %PO Good (75-100%) Estimated Nutritional Goals BEE in Kcals: Using Current wt Calories/Kcals/Kg 75kg CBW Kcals Calculated ~4949-4498 kcal/day Protein: Using Current wt Protein g/k.8-1 gm/kg Protein Calculated ~60-75 gm/day Fluid: ml ~4462-5063 ml/day (1 ml/kcal) Nutritional Problem 1. Problem Problem Altered nutrition related lab values related to Etiology uncontrolled hyperglycemia aeb Signs/Symptoms: Glucose 344 Intervention/Recommendation Comments 1. Continue 60 gm CCHO, Chopped diet as tolerated by patient. 2. MD to adjust insulin regimen as needed for optimal glycemic control. Nursing to continue to encourage patient to take insulin as prescribed. Expected Outcomes/Goals Expected Outcomes/Goals Oral intake >75% of meals, weight stable, nutrition related labs WNL F/U MR 04/11-
--- NOTE | 2019-04-12 20:32 | Progress Notes ---
DATE: 04/12/2019 SUBJECTIVE: The patient is in bed, refusing to speak with me. Inset Cutter is also there, refusing to speak with dietitian. Staff noting, he is very forgetful, disoriented, resistant to care, easily agitated, irritable, impulsive, trying to hit staff at times, disheveled, unkempt, not allowing care, very poor blood sugar, currently on dosing of Seroquel. ASSESSMENT: The patient remains unruly, very high blood sugar. I will attempt to lower the dosing of Seroquel to see if this will improve his blood sugar, consider dose adjustments. JOB# [id number]
--- NOTE | 2019-04-13 14:44 | Discharge Summary ---
DATE OF DISCHARGE: 04/12/2019 HISTORY OF PRESENT ILLNESS: A 68-year-old male coming from a longterm, aggressive, agitated, trying to strike, yelling constantly, poor orientation, mad, impulse or screaming. PAST PSYCHIATRIC HISTORY: Likely dementia. SOCIAL HISTORY: Coming from a longterm. MEDICATIONS: Noted. PROVISIONAL DIAGNOSES: Mood, unspecified; anxiety, unspecified; psychosis, unspecified; rule out dementia, likely dementia. HOSPITAL COURSE: After initial assessment, the patient was started on medications, which were adjusted, titrated. Over the course of treatment, he was somewhat calmer, still impulsive, unpredictable, could use further hospitalization and became dehydrated. Concerns for medical decompensation, sent to the local ER and admitted. CONDITION UPON DISCHARGE: Improved. Still irritable, upset, confused, could use further hospitalization and treatment. DISCHARGE DIAGNOSES: Mood, unspecified; anxiety, unspecified; psychosis, unspecified; dementia. Please see full H and P, dehydration requiring transfer to higher level of medical care. PROGNOSIS: Could use further hospitalization treatment. [facility]# [id number]
== END 2019-04-12 19:30 | disposition short-term general hospital (02) | DRG 885 ==
LOC: GERO 20:50
PROVIDERS: ADMIT Psychiatry & Neurology Psychiatry; ATTEND Psychiatry & Neurology Psychiatry
DX: F39 Unspecified mood [affective] disorder (principal); F29 Unspecified psychosis not due to a substance or known physiological condition; F41.9 Anxiety disorder, unspecified; E11.9 Type 2 diabetes mellitus without complications; I10 Essential (primary) hypertension; E78.00 Pure hypercholesterolemia, unspecified; F03.90 Unspecified dementia, unspecified severity, without behavioral disturbance, psychotic disturbance, mood disturbance, and anxiety; F25.9 Schizoaffective disorder, unspecified; R26.89 Other abnormalities of gait and mobility; E86.0 Dehydration; Z86.73 Personal history of transient ischemic attack (TIA), and cerebral infarction without residual deficits
CPT/HCPCS: 83036-90; J1815